=== PATIENT | male | born 1965 | race Asian ===

== ENCOUNTER 2024-01-31 15:54 | Emergency (ER) | payer OTHER ==
[2024-01-31 16:04] VITALS: BP 148/95; PULSE 101; RESP 18; TEMP 97.6; BMI 28.7
[2024-01-31 17:26] LABS: BASO % 0.2 % (0-2.0); EOS % 0.1 % (0-4.5); HEMATOCRIT 42.4 % (35.4-49); HEMOGLOBIN 13.6 GM/dL (11.7-16.9); LYMPH % 5.5 % (8-40); MCH 27.1 pg (25.7-33.7); MCHC 32.1 g/dl (32.0-35.9); MEAN CELL VOLUME 84.4 fl (80-96); MEAN PLT VOLUME 8.2 fl (7.5-11.1); MONO % 6.6 % (3.8-10.2); NEUT % 87.6 % (42.8-82.8); PLATELET COUNT 240 10^3/uL (134-434); RBC 5.02 M/mm3 (4.00-5.60); RDW 14.7 % (11.9-15.9); WHITE BLOOD COUNT 11.7 K/mm3 (4.0-10.0)
[2024-01-31 17:32] LABS: EPI CELLS 1 /uL (0-25.1); HYALINE CASTS 0 /uL (0-3.1); PH,URINE 5.5 (5.0-8.0); URINE APPEARANCE CLEAR; URINE BACTERIA 0 /uL (0-1359); URINE BILIRUBIN NEGATIVE (NEGATIVE); URINE COLOR YELLOW; URINE GLUCOSE (UA) NEGATIVE (NEGATIVE); URINE KETONE NEGATIVE (NEGATIVE); URINE LEUK ESTERASE NEGATIVE (NEGATIVE); URINE NITRITE NEGATIVE (NEGATIVE); URINE PROTEIN NEGATIVE (NEGATIVE); URINE RBC 109 /uL (0-23.9); URINE UROBILINOGEN 0.2 mg/dL (0.2-1.0); URINE WBC 8 /uL (0-25.8)
[2024-01-31 17:44] LABS: POTASSIUM 4.2 mmol/L (3.5-5.1)
[2024-01-31 17:46] LABS: CALCIUM 9.4 mg/dL (8.5-10.1)
[2024-01-31 17:47] LABS: ALBUMIN 3.9 g/dl (3.4-5.0); BLOOD UREA NITROGEN 13.6 mg/dL (7-18)
[2024-01-31 17:50] LABS: CREATININE 1.2 mg/dL (0.55-1.3)
[2024-01-31 17:51] LABS: BILIRUBIN,TOTAL 0.5 mg/dL (0.2-1)
[2024-01-31 17:52] LABS: TOT PROT 7.1 g/dl (6.4-8.2)
== END 2024-01-31 19:00 | disposition home or self-care (01) ==
LOC: JER 15:54
PROC: 0T2BX0Z Change Drainage Device in Bladder, External Approach (ICD-10-PCS; principal; 2024-01-31)
DX: R33.9 Retention of urine, unspecified (principal); R35.0 Frequency of micturition; R10.30 Lower abdominal pain, unspecified
CPT/HCPCS: 36415; 80053; 81003; 85025; 87086; 99283-25

== ENCOUNTER 2024-10-17 06:09 | Day surgery (SDC) | payer OTHER, BC ==
[2024-10-15 16:18] VITALS: BMI 29.5
[2024-10-17] MEDS ORDERED: VANCOMYCIN/WATER FOR INJ (PEG) 1,000 MG/200 ML BAG IVPB ONE (08:35)
[2024-10-17] MEDS: VANCOMYCIN/WATER FOR INJ (PEG) 1,000 MG/200 ML BAG IVPB ONE (09:26)
[2024-10-17] MEDS: GENTAMICIN 80 MG PREMIXED IVPB 80 MG/100 ML BAG IVPB ONE (10:40)
[2024-10-17] MEDS ORDERED: VANCOMYCIN 1,000 MG VIAL (RESTRICTED TO ID ONLY) ONE ×2 (12:58→13:40)
[2024-10-17] MEDS ORDERED: GENTAMICIN SO4 80 MG/2 ML VIAL ONE (12:59)
[2024-10-17] MEDS ORDERED: ONDANSETRON 4 MG/2 ML VIAL IVPUSH PRN (13:13)
[2024-10-17] MEDS: LIDOCAINE HCL 1% PRESERVATIVE FREE - 30ML VIAL IJ ONE (14:05)
[2024-10-17] MEDS: BUPIVACAINE HCL/PF 0.5% (5MG/ML) 10 ML VIAL IJ ONE ×2 (14:05→14:52)
[2024-10-17] MEDS: LACTATED RINGERS SOLUTION 1,000 ML IV SCH (15:46)
[2024-10-17 17:36] VITALS: RESP 16
[2024-10-17 18:53] VITALS: BP 123/86; PULSE 70; TEMP 97.9
== END 2024-10-17 19:05 | disposition home or self-care (01) ==
LOC: JASU-SURG 06:09
PROVIDERS: ATTEND Urology
PROC: 0VUS0JZ Supplement Penis with Synthetic Substitute, Open Approach (ICD-10-PCS; principal; 2024-10-17 10:30)
DX: N52.9 Male erectile dysfunction, unspecified (principal)
CPT/HCPCS: 54405; C1813; 94760